=== PATIENT | female | born 1995 | race Caucasian/White ===

== ENCOUNTER → 2018-12-24 | Outpatient (CLI) | payer BC ==
--- NOTE | 2018-12-24 08:33 | US ---
EXAMINATION TYPE: US abdomen complete DATE OF EXAM: 12/24/2018 COMPARISON: NONE CLINICAL HISTORY: R14.2 Eructation. Acid reflux, IBS x 3 years EXAM MEASUREMENTS: Liver Length: 16.4 cm Gallbladder Wall: 0.2 cm CBD: 0.4 cm Spleen: 11.0 cm Right Kidney: 12.4 x 5.4 x 4.8 cm Left Kidney: 12.8 x 6.4 x 5.3 Pancreas: Tail obscured by overlying bowel gas Liver: There is increased echogenicity of the hepatic parenchyma with diminished visualization of th e portal triads most commonly relating to hepatic steatosis and limiting evaluation for underlying he patic masses. Gallbladder: No stones seen Evidence for sonographic Varghese's sign: No CBD: wnl Spleen: wnl Right Kidney: No hydronephrosis or masses seen Left Kidney: No hydronephrosis or masses seen Upper IVC: wnl Abd Aorta: wnl The liver is hyperechoic throughout. The intrahepatic portion of the IVC and proximal abdominal aort a are within normal limits. There is no evidence of cholelithiasis. Common bile duct is unremarkabl e. The visualized portions of the pancreas are homogenous. The spleen is unremarkable. Kidneys are symmetric and free of hydronephrosis. No renal lesions are seen. IMPRESSION: Exam is slightly limited secondary to overlying bowel gas. 1. Findings most commonly related to hepatic steatosis. Correlate with liver function tests. 2. No sonographic evidence of cholelithiasis nor acute cholecystitis.
== END | disposition home or self-care (01) ==
LOC: RADUSWWP 07:35
PROVIDERS: ATTEND Family Medicine
DX: R14.2 Eructation (principal)
CPT/HCPCS: 76700

== ENCOUNTER 2019-02-11 08:45 | Day surgery (SDC) | payer BC ==
[2019-02-10 12:36] VITALS: BMI 46.5
--- NOTE | 2019-02-11 07:35 | P.GSHP ---
History of Present Illness H&P Date: 02/11/19 CHIEF COMPLAINT: GERD HISTORY OF PRESENT ILLNESS: The patient is a 23-year-old female who presents reports gastroesophageal reflux disease. Upper endoscopy was offered for further evaluation and management. PAST MEDICAL HISTORY: Please see list. PAST SURGICAL HISTORY: Please see list. MEDICATIONS: Please see list. ALLERGIES: Please see list. SOCIAL HISTORY: No illicit drug use FAMILY HISTORY: No reports of Crohn disease or ulcerative colitis. REVIEW OF ORGAN SYSTEMS: CONSTITUTIONAL: No reports of fevers or chills. GI: Denies any blood in stools or constipation. PHYSICAL EXAM: VITAL SIGNS: Stable GENERAL: Well-developed and pleasant in no acute distress. HEENT: No scleral icterus. Extraocular movements grossly intact. Moist buccal mucosa. NECK: Supple without lymphadenopathy. CHEST: Unlabored respirations. Equal bilateral excursions. CARDIOVASCULAR: Regular rate and rhythm. Distal 2+ pulses. ABDOMEN: Soft, nondistended. MUSCULOSKELETAL: No clubbing, cyanosis, or edema. ASSESSMENT: 1. Gastroesophageal reflux disease PLAN: 1. Recommend proceeding with an upper endoscopy Past Medical History Past Medical History: GERD/Reflux Additional Past Medical History / Comment(s): frequent acid reflux for months, wakes up @night w/heartburn, tries to sleep propped, scheduled for gallbladder surg. next month, hx. fatty liver History of Any Multi-Drug Resistant Organisms: None Reported Past Surgical History: Tonsillectomy Additional Past Surgical History / Comment(s): cyst removed from leg, wisdom teeth Past Anesthesia/Blood Transfusion Reactions: No Reported Reaction Smoking Status: Former smoker - Past Family History Mother Family Medical History: No Reported History Medications and Allergies Home Medications Medication Instructions Recorded Confirmed Type Ibuprofen [Advil] 200 mg PO Q6HR PRN 02/10/19 02/10/19 History Metoclopramide HCl [Reglan] 10 mg PO TID 02/10/19 02/10/19 History Ranitidine HCl [Zantac] 75 mg PO BID 02/10/19 02/10/19 History Allergies Allergy/AdvReac Type Severity Reaction Status Date / Time No Known Allergies Allergy Verified 02/10/19 12:12
[~2019-02-11 08:45] MED LIST: LACTATED RINGERS 1,000 ML IV SCH; LIDOCAINE 1% 20 ML VIAL (10MG/ML) FOR IV START INTRADERMA PRN; MIDAZOLAM 2 MG/2 ML VIAL IV PRN
[2019-02-11 09:32] VITALS: TEMP 99.2
[2019-02-11] MEDS ORDERED: LIDOCAINE 1% INJ 10MG/ML (20 ML MDV) ONE (10:27)
[2019-02-11] MEDS ORDERED: GLYCOPYRROLATE 0.2 MG/ML 2 ML VIAL ONE (10:27)
[2019-02-11] MEDS ORDERED: PROPOFOL 10 MG/ML 20 ML VIAL IV ONE (10:27)
--- NOTE | 2019-02-11 10:57 | P.PCN ---
Date of Procedure: 02/11/19 Description of Procedure: PREOPERATIVE DIAGNOSIS: Gastroesophageal reflux disease. Morbid obesity. POSTOPERATIVE DIAGNOSIS: Morbid obesity. Gastritis. Gastroesophageal reflux disease Erosive esophagitis Duodenitis OPERATION: Esophagogastroduodenoscopy with biopsies along antrum. SURGEON: Amy Ballard MD ANESTHESIA: MAC. INDICATIONS: The patient is a 23-year-old female who presents with a history of reflux disease. Benefits and risks of the procedure were described. Informed consent was obtained. DESCRIPTION: The patient was brought into the endoscopy suite and laid in the left lateral decubitus position. An Olympus gastroscope was passed along the posterior oropharynx down to the distal esophagus where the squamocolumnar junction was encountered at 36 cm from the incisors. The stomach was entered and no bile reflux was found. Additional findings are listed below. Biopsies with cold forceps were obtained of the antrum. The first through third portion of the duodenum was examined and remarkable for duodenitis. Retroflexion of the scope confirmed Hill grade 2 lower esophageal valve. The squamocolumnar junction demonstrated LA grade B erosive esophagitis. The stomach was desufflated. The patient tolerated the procedure well. FINDINGS: Squamocolumnar junction 36 cm from the incisors. Diaphragmatic hiatus at 36 cm. Hill grade 2 lower esophageal valve. LA grade B erosive esophagitis. Active duodenitis. Chronic gastritis with recent bleed RECOMMENDATIONS: Upper endoscopy as needed. Plan - Discharge Summary Discharge Rx Participant: No New Discharge Prescriptions: No Action Ranitidine HCl [Zantac] 75 mg PO BID Ibuprofen [Advil] 200 mg PO Q6HR PRN PRN Reason: Pain Metoclopramide HCl [Reglan] 10 mg PO TID Discharge Medication List Ibuprofen [Advil] 200 mg PO Q6HR PRN 02/10/19 [History] Metoclopramide HCl [Reglan] 10 mg PO TID 02/10/19 [History] Ranitidine HCl [Zantac] 75 mg PO BID 02/10/19 [History] Follow up Appointment(s)/Referral(s): Amy Ballard MD [STAFF PHYSICIAN] - As Needed Patient Instructions/Handouts: Gastroesophageal Reflux Disease (DC) Discharge Disposition: HOME SELF-CARE
[2019-02-11 11:13] VITALS: BP 131/89; PULSE 87; RESP 16
== END 2019-02-11 11:29 | disposition home or self-care (01) ==
LOC: ORWHC2ENDO 08:45
PROVIDERS: ATTEND Surgery Plastic and Reconstructive Surgery
DX: K21.0 Gastro-esophageal reflux disease with esophagitis (principal); K29.50 Unspecified chronic gastritis without bleeding; K29.80 Duodenitis without bleeding; E66.01 Morbid (severe) obesity due to excess calories; Z68.42 Body mass index [BMI] 45.0-49.9, adult; Z87.891 Personal history of nicotine dependence; Z79.1 Long term (current) use of non-steroidal anti-inflammatories (NSAID); Z79.899 Other long term (current) drug therapy
CPT/HCPCS: 43239; 88305; J2001; J2704

== ENCOUNTER → 2019-03-05 | Outpatient (CLI) | payer BC | END | disposition home or self-care (01) | LOC: LABPAT 09:58 | PROVIDERS: ATTEND Surgery Plastic and Reconstructive Surgery | DX: Z53.9 Procedure and treatment not carried out, unspecified reason (principal) ==

== ENCOUNTER 2019-03-06 07:26 | Day surgery (SDC) | payer BC ==
[2019-03-03 15:00] VITALS: BMI 47.4
--- NOTE | 2019-03-06 06:25 | P.GSHP ---
History of Present Illness H&P Date: 03/06/19 CHIEF COMPLAINT: Cholecystitis HISTORY OF PRESENT ILLNESS: The patient is a 23-year-old female who presents with history of epigastric including right upper quadrant abdominal pain. She underwent diagnostic studies for her gallbladder. Separately her clinical picture was consistent with cholecystitis. Now she presents for surgical intervention. PAST MEDICAL HISTORY: Please see list PAST SURGICAL HISTORY: Please see list MEDICATIONS: Please see list ALLERGIES: Denies. SOCIAL HISTORY: No illicit drug use or recent tobacco use FAMILY HISTORY: Pertinent for gallbladder disease REVIEW OF ORGAN SYSTEMS: CONSTITUTIONAL: No reports of fevers or chills. HEENT: Denies any troubles with the vision or hearing. HEMATOLOGIC: No personal or family history of DVTs or pulmonary emboli. SKIN: No skin cancer. PHYSICAL EXAM: VITAL SIGNS: Afebrile vital signs stable GENERAL: Well-developed pleasant in no acute distress. HEENT: No scleral icterus. Extraocular movements grossly intact. Moist buccal mucosa. NECK: Supple without lymphadenopathy. CHEST: Unlabored respirations. Equal bilateral excursions. CARDIOVASCULAR: Regular rate regular rhythm rhythm. Distal 2+ pulses. ABDOMEN: Soft, nondistended. Tender along the epigastrium and right upper quadrant. MUSCULOSKELETAL: No clubbing, cyanosis, or edema. NEURO: Cranial nerves II to XII within normal limits. No focal or lateralizing signs. PSYCH: Alert and oriented to person, place and time. SKIN: Well-perfused good skin turgor. ASSESSMENT: 1. Epigastric and right upper quadrant abdominal pain 2. Chronic cholecystitis 3. Symptomatic gallstones. PLAN: 1. Will need a robotic cholecystectomy possible open. Benefits and risks were described. 2. Heparin for DVT prophylaxis 5000 units. 3. Antibiotic prophylaxis. Past Medical History Past Medical History: Liver Disease Additional Past Medical History / Comment(s): GALLBLADDER DISEASE. FATTY LIVER History of Any Multi-Drug Resistant Organisms: None Reported Past Surgical History: Tonsillectomy Additional Past Surgical History / Comment(s): CYST REMOVED FROM LEG. EGD. WISDOM TEETH REMOVED UNDER ANESTHESIA Past Anesthesia/Blood Transfusion Reactions: Motion Sickness Smoking Status: Former smoker - Past Family History Mother Family Medical History: No Reported History Medications and Allergies Home Medications Medication Instructions Recorded Confirmed Type Ibuprofen [Advil] 200 mg PO Q6HR PRN 02/10/19 03/03/19 History Metoclopramide HCl [Reglan] 10 mg PO TID 02/10/19 03/03/19 History Ranitidine HCl [Zantac] 75 mg PO BID 02/10/19 03/03/19 History Allergies Allergy/AdvReac Type Severity Reaction Status Date / Time No Known Allergies Allergy Verified 03/03/19 14:49
[~2019-03-06 07:26] MED LIST changes: +ACETAMINOPHEN TAB 500 MG TAB PO STA; +DEXAMETHASONE SOD PHOSPHATE 10 MG/ML 1 ML VIAL IV ONE; +HEPARIN SODIUM,PORCINE 5,000 UNIT/ML 1 ML VIAL SQ ONE; +HYDROmorphone 0.5 MG/0.5 ML SYRINGE IVP PRN; +INDOCYANINE GREEN 25 MG VIAL IV STA; -MIDAZOLAM 2 MG/2 ML VIAL IV PRN; +ONDANSETRON 4 MG/2 ML VIAL IVP ONE; +SCOPOLAMINE 1.5MG/72HR PATCH TRANSDERM ONE; +ceFAZolin 3 GM in SODIUM CHLORIDE 0.9% 100 ML IVPB ONE
[2019-03-06 08:11] LABS: Glucose,Whole Blood 122 mg/dL (75-99)
[2019-03-06 08:20] LABS: Basophils # (A) 0.1 k/uL (0-0.2); Basophils % (A) 1 %; Eosinophils # (A) 0.2 k/uL (0-0.7); Eosinophils % (A) 2 %; HCT 39.2 % (34.0-46.0); HGB 13.5 gm/dL (11.4-16.0); Lymphocytes # (A) 2.5 k/uL (1.0-4.8); Lymphocytes % (A) 29 %; MCH 28.7 pg (25.0-35.0); MCHC 34.3 g/dL (31.0-37.0); MCV 83.6 fL (80.0-100.0); Mean Platelet Volume 6.4; Monocytes # (A) 0.4 k/uL (0-1.0); Monocytes % (A) 4 %; Neutrophils # (A) 5.5 k/uL (1.3-7.7); Neutrophils % (A) 63 %; Platelet Count 285 k/uL (150-450); RBC 4.69 m/uL (3.80-5.40); RDW 15.6 % (11.5-15.5); WBC 8.7 k/uL (3.8-10.6)
[2019-03-06] MEDS ORDERED: fentaNYL (PF) 50 MCG/ML 2 ML AMP IV ONE (08:20)
[2019-03-06] MEDS ORDERED: MIDAZOLAM (PF) 2 MG/2 ML VIAL IV ONE (08:20)
--- NOTE | 2019-03-06 09:00 | P.ANPRN ---
Procedure Note - Anesthesia - Nerve Block Performed Bilateral Transversus Abdominis Single Time Out Performed: Yes Date of Procedure: 03/06/19 Procedure Start Time: Procedure Stop Time: Location of Patient Procedure: PreOp Indication: Acute Post-Operative Pain, Analgesia, Requested by Surgeon Sedation Type: Sedate with meaningful contact maintained Preparation: Sterile Prep Position: Supine Catheter: Indwelling Needle Gauge: 21 Ultrasound used to visualize needle placement: Yes Ultrasound used to observe medication spread: Yes Injectate: Other (see comment) (0.5% bupivacaine 15cc each side) Blood Aspirated: No Pain Paresthesia on Injection Noted: No Resistance on Injection: Normal Image Stored and Saved: Yes Events: Uneventful and Well Tolerated
[2019-03-06] MEDS ORDERED: fentaNYL (PF) 50 MCG/ML 2 ML AMP ONE (09:25)
[2019-03-06] MEDS ORDERED: BUPIVACAINE (PF) 0.5% 30 ML VIAL ONE (09:25)
[2019-03-06] MEDS ORDERED: PROPOFOL 10 MG/ML 20 ML VIAL IV ONE (09:25)
[2019-03-06] MEDS ORDERED: GLYCOPYRROLATE 0.2 MG/ML 2 ML VIAL ONE (09:25)
[2019-03-06] MEDS ORDERED: NEOSTIGMINE 1 MG/ML 10 ML VIAL ONE (09:25)
[2019-03-06] MEDS ORDERED: ROCURONIUM BROMIDE 10 MG/ML 10 ML VIAL IV ONE (09:25)
[2019-03-06] MEDS ORDERED: INDOCYANINE GREEN 25 MG VIAL IV ONE (09:25)
[2019-03-06] MEDS ORDERED: LIDOCAINE 1% INJ 10MG/ML (20 ML MDV) ONE (09:25)
[2019-03-06] MEDS ORDERED: MIDAZOLAM 2 MG/2 ML VIAL ONE (09:25)
[2019-03-06] MEDS ORDERED: NALOXONE 0.4 MG/ML 1 ML VIAL ONE (09:25)
[2019-03-06] MEDS ORDERED: LIDOCAINE 1%-EPI 1:100,000 20 ML VIAL SQ ONE (09:51)
--- NOTE | 2019-03-06 10:52 | P.OP ---
Date of Procedure: 03/06/19 Description of Procedure: SURGEON: AMY BALLARD MD PREOPERATIVE DIAGNOSES: 1. Right upper quadrant abdominal pain 2. Chronic cholecystitis 3. Morbid obesity due to excess calories, BMI 47.4 4. Gastroesophageal reflux disease 5. Anxiety disorder 6. Depressive disorder POSTOPERATIVE DIAGNOSES: 1. Right upper quadrant abdominal pain 2. Chronic cholecystitis 3. Morbid obesity due to excess calories, BMI 47.4 4. Gastroesophageal reflux disease 5. Anxiety disorder 6. Depressive disorder 7. Fatty liver disease 8. Hepatomegaly OPERATION: Robotic-assisted da Laura Xi laparoscopic cholecystectomy, multiport with FIREFLY ESTIMATED BLOOD LOSS: 5 mL. SPECIMENS REMOVED: Gallbladder. COMPLICATIONS: None. OPERATIVE FINDINGS: 1. Chronic cholecystitis 2. Moderate to severe hepatomegaly from fatty liver disease adding complexity to the case 3. Console time 38 minutes INDICATIONS: The patient is a 23-year-old female who presents with cholelcystitis. Surgical intervention with a laparoscopic cholecystectomy was described at length including injury to the biliary tree, bleeding, infection, need for further surgery. Informed consent was obtained. Robotic assisted laparoscopic approach was described. Benefits and risks of the procedure including but not limited to bleeding, infection, injury to the biliary tree was described. Informed consent was obtained. DESCRIPTION OF PROCEDURE: Patient was brought to the operating room, placed in supine position. After general induction, the abdomen had been prepped and draped in standard sterile fashion. The robotic da Laura XI system was primed. After a timeout protocol was performed, the patient had been prepped and draped in standard sterile fashion. The patient was injected with indocyanine green. A 5 mm 0 degrees laparoscopic trocar entry was performed along the left upper quadrant. The abdomen insufflated to 15 mmHg pressure which was tolerated well. Diagnostic laparoscopy demonstrated no injury to bowel viscera or mesentery. The liver surface was unremarkable. Next, two 8 mm robotic ports were placed along the right upper abdomen. The camera 8-mm port was maintained along the epigastrium. Another 8 mm port was placed along the left upper abdominal wall after exchanging the 5 mm port. Please note that the ports were placed at least 10 to 15 cm away from the target anatomy of the gallbladder. The robot was docked along the left lateral abdomen. The patient was repositioned in reverse Trendelenburg position. Using a grasper for arm 3, a grasper for arm 4, including hook cautery for arm 1, the robotic system was docked and primed as described. Instruments were interchanged by the assistant professor including hook cautery, Bovie cautery and clip appliers. I had sat at the console. Severe hepatomegaly is identified and complexity to the case including exposure of the gallbladder. A dome down technique was approached. The gallbladder was dissected from the hepatic fossa to the gallbladder infundibulum. The gallbladder fundus was retracted over the dome of the liver. Initial attention was brought to the infundibulum which was gently retracted in the inferior lateral approach. Using a grasper, the cystic duct including the cystic artery was carefully skeletonized. FIREFLY was used to identify the cystic artery and cystic structures. A critical view of safety was obtained. Large PLASTIC clips were used throughout the entire case. Using a clip physical scientist 2 clips were placed proximally, and 1 clip was placed between the infundibulum and cystic duct and divided using cautery. Next, the cystic artery was similarly clipped and cauterized. Electro-Bovie cautery was used to remove the gallbladder from the hepatic fossa. Hemostasis was checked and found to be adequate. The robot was undocked. I re-scrubbed into the case. Using a 10 mm Endo Catch bag via the left upper quadrant incision, the specimen was removed from the abdominal cavity. All pneumoperitoneum instruments were evacuated from the abdominal cavity. The incisions were reapproximated using 4-0 Monocryl in an interrupted subcuticular fashion. Fascial defects were less than 8 mm in size. Please note along the trocar sites, local anesthetic was placed as a field block prior to insertion of all instruments. Liquid glue was applied to the skin. At the end of the procedure needle, sponge, and instrument count had been verified correct by the surgical instrument mechanic. The patient was transferred to postanesthesia care unit in stable condition. Intraoperative films were shared with the patient's family who were very pleased with the level of care. Plan - Discharge Summary Discharge Rx Participant: No New Discharge Prescriptions: New Ibuprofen [Motrin] 600 mg PO Q8HR PRN #30 tab PRN Reason: Pain Acetaminophen Tab [Tylenol Tab] 500 mg PO Q6H PRN #30 tablet PRN Reason: Pain No Action Ranitidine HCl [Zantac] 75 mg PO BID Ibuprofen [Advil] 200 mg PO Q6HR PRN PRN Reason: Pain Metoclopramide HCl [Reglan] 10 mg PO TID Discharge Medication List Ibuprofen [Advil] 200 mg PO Q6HR PRN 02/10/19 [History] Metoclopramide HCl [Reglan] 10 mg PO TID 02/10/19 [History] Ranitidine HCl [Zantac] 75 mg PO BID 02/10/19 [History] Acetaminophen Tab [Tylenol Tab] 500 mg PO Q6H PRN #30 tablet 03/06/19 [Rx] Ibuprofen [Motrin] 600 mg PO Q8HR PRN #30 tab 03/06/19 [Rx] Follow up Appointment(s)/Referral(s): Amy Ballard MD [STAFF PHYSICIAN] - 03/10/19 Patient Instructions/Handouts: *Surgery [facility] - Scopalamine Patch Instructions, Low Fat Diet (DC), Laparoscopic Cholecystectomy (DC) Activity/Diet/Wound Care/Special Instructions: No lifting over 10 pounds for 10 days until March 16. May shower. No bathtub soaks until 03/16/[address] in 48 hours. Low-fat diet for the next 48 hours. Use ice for incisions. Discharge Disposition: HOME SELF-CARE
[2019-03-06] MEDS ORDERED: LACTATED RINGERS 1,000 ML IV ONE (11:03)
[2019-03-06 11:16] VITALS: TEMP 96.8
[2019-03-06] MEDS ORDERED: HYDROmorphone 1 MG/ML 1 ML SYRINGE IVP ONE ×2 (11:40→11:43)
[2019-03-06 11:58] VITALS: RESP 16
[2019-03-06 12:53] VITALS: BP 121/72; PULSE 83
== END 2019-03-06 13:40 | disposition home or self-care (01) ==
LOC: OR 07:26
PROVIDERS: ATTEND Surgery Plastic and Reconstructive Surgery
DX: K81.1 Chronic cholecystitis (principal); E66.01 Morbid (severe) obesity due to excess calories; Z68.42 Body mass index [BMI] 45.0-49.9, adult; F32.9 Major depressive disorder, single episode, unspecified; F41.9 Anxiety disorder, unspecified; K21.9 Gastro-esophageal reflux disease without esophagitis; K76.0 Fatty (change of) liver, not elsewhere classified; Z87.891 Personal history of nicotine dependence; Z79.899 Other long term (current) drug therapy
CPT/HCPCS: 81025; 64488; 88304; 85025; 47562; J2250 ×2; J1644; J1100; J2310; J2710; J0690; J2405; J2001; J3010; J1170; J2704

== ENCOUNTER 2019-04-21 13:17 | Emergency (ER) | payer BC ==
[2019-04-21 13:49] VITALS: TEMP 98.2
[2019-04-21] MEDS ORDERED: KETOROLAC 30 MG/ML 1 ML VIAL IVP STA (15:08)
[2019-04-21] MEDS ORDERED: PANTOPRAZOLE 40 MG/10 ML VIAL IVP STA (15:08)
[2019-04-21] MEDS ORDERED: MORPHINE SULFATE 4 MG/ML SYRINGE IVP STA (15:08)
[2019-04-21] MEDS ORDERED: SODIUM CHLORIDE 0.9% 1,000 ML IV ONE (15:08)
[2019-04-21 15:15] LABS: Basophils # (A) 0.2 k/uL (0-0.2); Basophils % (A) 1 %; Eosinophils # (A) 0.3 k/uL (0-0.7); Eosinophils % (A) 3 %; HCT 40.2 % (34.0-46.0); HGB 13.4 gm/dL (11.4-16.0); Lymphocytes # (A) 3.5 k/uL (1.0-4.8); Lymphocytes % (A) 31 %; MCH 27.8 pg (25.0-35.0); MCHC 33.3 g/dL (31.0-37.0); MCV 83.6 fL (80.0-100.0); Mean Platelet Volume 6.1; Monocytes # (A) 0.5 k/uL (0-1.0); Monocytes % (A) 5 %; Neutrophils # (A) 6.6 k/uL (1.3-7.7); Neutrophils % (A) 59 %; Platelet Count 327 k/uL (150-450); RBC 4.81 m/uL (3.80-5.40); RDW 13.1 % (11.5-15.5); WBC 11.3 k/uL (3.8-10.6)
[2019-04-21 15:16] LABS: ALT 67 U/L (9-52); AST 43 U/L (14-36); African American GFR (CKD) >90 (>60 ml/min/1.73 sqM); Albumin 4.4 g/dL (3.5-5.0); Alkaline Phosphatase 117 U/L (38-126); Amylase 56 U/L (30-110); Anion Gap 11 mmol/L; Blood Urea Nitrogen 13 mg/dL (7-17); Calcium 9.6 mg/dL (8.4-10.2); Carbon Dioxide 22 mmol/L (22-30); Chloride 107 mmol/L (98-107); Glucose 80 mg/dL (74-99); Sodium 140 mmol/L (137-145); Total Bilirubin 0.4 mg/dL (0.2-1.3)
--- NOTE | 2019-04-21 15:33 | ED ---
Abdominal Pain HPI - General Chief Complaint: Abdominal Pain Stated Complaint: Abdominal pain Time Seen by Provider: 04/21/19 14:16 Source: patient, RN notes reviewed, old records reviewed Mode of arrival: ambulatory Limitations: no limitations - History of Present Illness Initial Comments: Patient is a 23-year-old female presents return today with left upper quadrant left lower abdominal and right upper quadrant abdominal pain for the past 3 days. She points to some nausea and discomfort. She states that she's been having vomiting. Patient had history of cholecystectomy approximately one month ago. She denies any specific fevers or chills that she is aware of. Denies any changes in urination or bowel habits. - Related Data Home Medications Medication Instructions Recorded Confirmed Omeprazole [PriLOSEC] 20 mg PO DAILY PRN 04/21/19 04/21/19 Previous Rx's Medication Instructions Recorded Ibuprofen [Motrin] 600 mg PO Q8HR PRN #30 tab 03/06/19 Allergies Allergy/AdvReac Type Severity Reaction Status Date / Time No Known Allergies Allergy Verified 04/21/19 18:36 Review of Systems ROS Statement: Those systems with pertinent positive or pertinent negative responses have been documented in the HPI. ROS Other: All systems not noted in ROS Statement are negative. Past Medical History Past Medical History: GERD/Reflux Additional Past Medical History / Comment(s): frequent acid reflux for months, wakes up @night w/heartburn, tries to sleep propped, scheduled for gallbladder surg. next month, hx. fatty liver History of Any Multi-Drug Resistant Organisms: None Reported Past Surgical History: Cholecystectomy, Tonsillectomy Additional Past Surgical History / Comment(s): cyst removed from leg, wisdom teeth Past Anesthesia/Blood Transfusion Reactions: No Reported Reaction Past Psychological History: Anxiety, Depression, PTSD Smoking Status: Former smoker Past Alcohol Use History: None Reported Past Drug Use History: Marijuana - Past Family History Mother Family Medical History: No Reported History General Exam - General Exam Comments Initial Comments: 23-year-old female. Alert and oriented 3. No distress. General: Well appearing, well nourished, in no distress. Oriented x 3, normal mood and affect . Ambulating without difficulty. Skin: Good turgor, no rash, unusual bruising or prominent lesions Hair: Normal texture and distribution. HEENT: Head: Normocephalic, atraumatic, no visible or palpable masses, depressions, or scaring. Eyes: Visual acuity intact, conjunctiva clear, sclera non-icteric, EOM intact, PERRL. Ears: EACs clear, TMs translucent & cone of light visualized. hearing intact. Nose: No external lesions, mucosa non-inflamed, septum and turbinates normal Mouth: Mucous membranes moist, no mucosal lesions. Teeth/Gums: No obvious caries or periodontal disease. No gingival inflammation or significant resorption. Pharynx: Mucosa non-inflamed, no tonsillar hypertrophy or exudate Neck: Supple, without lesions, bruits, or adenopathy, thyroid non-enlarged and non-tender Heart: No cardiomegaly or thrills; regular rate and rhythm, no murmur or gallop Lungs: Clear to auscultation and percussion Abdomen: Bowel sounds normal, left upper quadrant tenderness. Back: Spine normal without deformity or tenderness, no CVA tenderness Extremities: No amputations or deformities, cyanosis, edema or varicosities, peripheral pulses intact Musculoskeletal: Normal gait and station. No misalignment, asymmetry, crepitation, defects, tenderness, masses, effusions, decreased range of motion, instability, atrophy or abnormal strength or tone in the head, neck, spine, ribs, pelvis or extremities. Neurologic: CN 2-12 normal. Sensation to pain, touch, and proprioception normal. DTRs normal in upper and lower extremities. No pathologic reflexes. Psychiatric: Oriented X3, intact recent and remote memory, judgment and insight, normal mood and affect. Limitations: no limitations Course Vital Signs 04/21/19 04/21/19 04/21/19 13:47 16:55 18:09 Temperature 98.2 F 98.2 F Pulse Rate 101 H 82 81 Respiratory 22 18 18 Rate Blood Pressure 157/99 122/85 130/83 O2 Sat by Pulse 99 96 98 Oximetry Medical Decision Making - Medical Decision Making 23-year-old female presents today for evaluation for left upper quadrant abdominal pain. Is given IV fluids, Protonix oral morphine. On reevaluation she is continued to complain of pain. Blood work was reviewed and unremarkable. Discussed with persistent pain history of cholecystectomy we can do further imaging today such as a CAT scan. She is agreeable to proceed with this. CT was shows no acute changes. Evidence is a fatty liver disease was noted. Patient advised that she may have gastritis or peptic ulcer disease. I discussed that she needs to follow-up with primary care doctor and will comply the Patient on antacids at this time. Discussed return parameters and close PCP follow-up. - Lab Data Result diagrams: 04/21/19 15:00 04/21/19 15:00 Lab Results 04/21/19 04/21/19 04/21/19 Range/Units 15:00 15:00 15:33 WBC 11.3 H (3.8-10.6) k/uL RBC 4.81 (3.80-5.40) m/uL Hgb 13.4 (11.4-16.0) gm/dL Hct 40.2 (34.0-46.0) % MCV 83.6 (80.0-100.0) fL MCH 27.8 (25.0-35.0) pg MCHC 33.3 (31.0-37.0) g/dL RDW 13.1 (11.5-15.5) % Plt Count 327 (150-450) k/uL Neutrophils % 59 % Lymphocytes % 31 % Monocytes % 5 % Eosinophils % 3 % Basophils % 1 % Neutrophils # 6.6 (1.3-7.7) k/uL Lymphocytes # 3.5 (1.0-4.8) k/uL Monocytes # 0.5 (0-1.0) k/uL Eosinophils # 0.3 (0-0.7) k/uL Basophils # 0.2 (0-0.2) k/uL Sodium 140 (137-145) mmol/L Potassium 4.0 (3.5-5.1) mmol/L Chloride 107 (98-107) mmol/L Carbon Dioxide 22 (22-30) mmol/L Anion Gap 11 mmol/L BUN 13 (7-17) mg/dL Creatinine 0.74 (0.52-1.04) mg/dL Est GFR (CKD-EPI)AfAm >90 (>60 ml/min/1.73 sqM) Est GFR (CKD-EPI)NonAf >90 (>60 ml/min/1.73 sqM) Glucose 80 (74-99) mg/dL Calcium 9.6 (8.4-10.2) mg/dL Total Bilirubin 0.4 (0.2-1.3) mg/dL AST 43 H (14-36) U/L ALT 67 H (9-52) U/L Alkaline Phosphatase 117 (38-126) U/L Total Protein 8.0 (6.3-8.2) g/dL Albumin 4.4 (3.5-5.0) g/dL Amylase 56 (30-110) U/L Lipase 151 (23-300) U/L Urine Color Urine Appearance (Clear) Urine pH (5.0-8.0) Ur Specific [place] (1.001-1.035) Urine Protein (Negative) Urine Glucose (UA) (Negative) Urine Ketones (Negative) Urine Blood (Negative) Urine Nitrite (Negative) Urine Bilirubin (Negative) Urine Urobilinogen (<2.0) mg/dL Ur Leukocyte Esterase (Negative) Urine RBC (0-5) /hpf Urine WBC (0-5) /hpf Ur Squamous Epith Cells (0-4) /hpf Amorphous Sediment (None) /hpf Urine Mucus (None) /hpf Urine HCG, Qual Not Detected (Not Detectd) 04/21/19 Range/Units 15:33 WBC (3.8-10.6) k/uL RBC (3.80-5.40) m/uL Hgb (11.4-16.0) gm/dL Hct (34.0-46.0) % MCV (80.0-100.0) fL MCH (25.0-35.0) pg MCHC (31.0-37.0) g/dL RDW (11.5-15.5) % Plt Count (150-450) k/uL Neutrophils % % Lymphocytes % % Monocytes % % Eosinophils % % Basophils % % Neutrophils # (1.3-7.7) k/uL Lymphocytes # (1.0-4.8) k/uL Monocytes # (0-1.0) k/uL Eosinophils # (0-0.7) k/uL Basophils # (0-0.2) k/uL Sodium (137-145) mmol/L Potassium (3.5-5.1) mmol/L Chloride (98-107) mmol/L Carbon Dioxide (22-30) mmol/L Anion Gap mmol/L BUN (7-17) mg/dL Creatinine (0.52-1.04) mg/dL Est GFR (CKD-EPI)AfAm (>60 ml/min/1.73 sqM) Est GFR (CKD-EPI)NonAf (>60 ml/min/1.73 sqM) Glucose (74-99) mg/dL Calcium (8.4-10.2) mg/dL Total Bilirubin (0.2-1.3) mg/dL AST (14-36) U/L ALT (9-52) U/L Alkaline Phosphatase (38-126) U/L Total Protein (6.3-8.2) g/dL Albumin (3.5-5.0) g/dL Amylase (30-110) U/L Lipase (23-300) U/L Urine Color Yellow Urine Appearance Clear (Clear) Urine pH 5.5 (5.0-8.0) Ur Specific [place] 1.021 (1.001-1.035) Urine Protein Negative (Negative) Urine Glucose (UA) Negative (Negative) Urine Ketones Negative (Negative) Urine Blood Trace H (Negative) Urine Nitrite Negative (Negative) Urine Bilirubin Negative (Negative) Urine Urobilinogen <2.0 (<2.0) mg/dL Ur Leukocyte Esterase Negative (Negative) Urine RBC 1 (0-5) /hpf Urine WBC 2 (0-5) /hpf Ur Squamous Epith Cells 8 H (0-4) /hpf Amorphous Sediment Rare H (None) /hpf Urine Mucus Rare H (None) /hpf Urine HCG, Qual (Not Detectd) - Radiology Data Radiology results: report reviewed Negative CT of the abdomen and pelvis. Minimal infiltration of the liver. Normal appendix. KUB shows No acute abdomen. Read by Dr. Saeed. Disposition Clinical Impression: Upper abdominal pain Disposition: HOME SELF-CARE Condition: Good Instructions (If sedation given, give patient instructions): Abdominal Pain (ED) Additional Instructions: Please use medication as discussed. Please follow up with family doctor if symptoms have not improved over the next two days. Please return to the emergency room if your symptoms increase or worsen or for any other concerns. Is patient prescribed a controlled substance at d/c from ED?: No Referrals: Kurt Claros DO [Primary Care Provider] - 1-2 days Time of Disposition: 17:55
[2019-04-21 16:08] LABS: Amorphous Sediment,Urine Rare /hpf; Appearance,Urine Clear (Clear); Bilirubin,Urine Negative (Negative); Blood,Urine Trace (Negative); Color,Urine Yellow; Glucose,Urine (UA) Negative (Negative); Ketones,Urine Negative (Negative); Leukocyte Esterase,Urine Negative (Negative); Mucus,Urine Rare /hpf; Nitrite,Urine Negative (Negative); PH, Urine 5.5 (5.0-8.0); Protein,Urine Negative (Negative); RBC,Urine 1 /hpf (0-5); Specific Gravity,Urine 1.021 (1.001-1.035); Squamous Epithelial Cell,Urine 8 /hpf (0-4); Urobilinogen,Urine <2.0 mg/dL (<2.0)
--- NOTE | 2019-04-21 16:39 | XR ---
EXAMINATION TYPE: XR KUB DATE OF EXAM: 04/21/2019 COMPARISON: NONE HISTORY: Abdominal pain TECHNIQUE: 2 views FINDINGS: 2 views upright were obtained and show no sign of intestinal obstruction or pneumoperitoneu m. Fecal pattern is normal. There is no sign of a mass. Lung bases are clear. There are no pathologic calcifications. IMPRESSION: Nonacute abdomen.
[2019-04-21 16:57] VITALS: RESP 18
--- NOTE | 2019-04-21 17:44 | CT ---
EXAMINATION TYPE: CT abdomen pelvis w con DATE OF EXAM: 04/21/2019 COMPARISON: None HISTORY: abdominal pain, N/V/D 1 month post-op sobeida CT DLP: 2659.4 mGycm Automated exposure control for dose reduction was used. TECHNIQUE: Helical acquisition of images was performed from the lung bases through the pelvis. CONTRAST: Performed without Oral Contrast and with IV Contrast, patient injected with 100 mL of Isovue 300. FINDINGS: Lung bases are clear. There is no pleural effusion. Heart size is normal. There is some fatty replacement of the liver. Spleen is intact. There is no pancreatic mass. Gallblad de appears normal. Stomach is intact. There is no adrenal mass. Kidneys show satisfactory contrast opacification. There is no hydronephrosi s. Ureters are not dilated. Bladder distends smoothly. There is no inguinal hernia. Appendix appears normal. There is no mesenteric edema. There is no ascites or free air. There is no sign of a bowel ob struction. Lumbar spine is intact. I see no bony destructive process. Uterus is anteverted. IMPRESSION: NEGATIVE CT SCAN OF THE ABDOMEN PELVIS. MINIMAL FATTY INFILTRATION OF THE LIVER. NORMAL APPENDIX.
[2019-04-21 18:09] VITALS: BP 130/83; PULSE 81
== END 2019-04-21 18:53 | disposition home or self-care (01) ==
LOC: EC 13:17
DX: K76.0 Fatty (change of) liver, not elsewhere classified (principal); R10.11 Right upper quadrant pain; R10.12 Left upper quadrant pain; K21.9 Gastro-esophageal reflux disease without esophagitis; Z79.899 Other long term (current) drug therapy; Z90.49 Acquired absence of other specified parts of digestive tract; Z87.891 Personal history of nicotine dependence
CPT/HCPCS: 36415; 80053; 82150; 83690; 85025; 81001; 81025; 74018; 74177; 99285; 96374; 96375 ×2; 96361; J2270; J1885; C9113; Q9967

== ENCOUNTER 2020-01-25 12:44 | Emergency (ER) | payer BC ==
[2020-01-25] MEDS ORDERED: diphenhydrAMINE 50 MG CAP PO STA (13:24)
[2020-01-25] MEDS ORDERED: METOCLOPRAMIDE 5 MG/ML 2 ML VIAL IM STA (13:24)
[2020-01-25] MEDS ORDERED: KETOROLAC 30 MG/ML 1 ML VIAL IM STA (13:24)
--- NOTE | 2020-01-25 13:26 | ED ---
Headache HPI - General Mode of arrival: ambulatory Limitations: no limitations <Arie Kelley - Last Filed: 01/25/20 18:45> <Farheen Schafer - Last Filed: 01/28/20 01:58> - General Chief Complaint: Headache Stated Complaint: migraine/vomiting Time Seen by Provider: 01/25/20 13:05 - History of Present Illness Initial Comments: Patient is a 24-year-old female with history of migraines presenting to the emergency department with a chief complaint of headache. Patient reports this was a gradual onset headache on the left side of her head that has been unwell for the past 4 days. Patient reports photosensitivity and about 2 days ago she developed nausea with multiple episodes of nonbilious, nonbloody vomiting. Patient reports she does have history of migraines but her most recent one has been several years ago. Patient denies one-sided weakness or paresthesias. States he took [id number] analgesics with some improvement status. Denies any possibility for . Denies a night sweats or chills. Denies neck stiffness. (Arie Kelley) - Related Data Home Medications Medication Instructions Recorded Confirmed Omeprazole [PriLOSEC] 20 mg PO DAILY PRN 04/21/19 04/21/19 Previous Rx's Medication Instructions Recorded Ibuprofen [Motrin] 600 mg PO Q8HR PRN #30 tab 03/06/19 Ondansetron Odt [Zofran Odt] 4 mg PO Q8HR PRN #14 tab 01/25/20 Allergies Allergy/AdvReac Type Severity Reaction Status Date / Time No Known Allergies Allergy Verified 01/25/20 12:48 Review of Systems ROS Other: All systems not noted in ROS Statement are negative. <Arie Kelley - Last Filed: 01/25/20 18:45> ROS Other: All systems not noted in ROS Statement are negative. <Farheen Schafer - Last Filed: 01/28/20 01:58> ROS Statement: Those systems with pertinent positive or pertinent negative responses have been documented in the HPI. Past Medical History Past Medical History: GERD/Reflux Additional Past Medical History / Comment(s): frequent acid reflux for months, wakes up @night w/heartburn, tries to sleep propped, scheduled for gallbladder surg. next month, hx. fatty liver History of Any Multi-Drug Resistant Organisms: None Reported Past Surgical History: Cholecystectomy, Tonsillectomy Additional Past Surgical History / Comment(s): cyst removed from leg, wisdom teeth Past Anesthesia/Blood Transfusion Reactions: No Reported Reaction Past Psychological History: Anxiety, Depression, PTSD Smoking Status: Vaper Past Alcohol Use History: None Reported Past Drug Use History: Marijuana - Past Family History Mother Family Medical History: No Reported History <Arie Kelley - Last Filed: 01/25/20 18:45> General Exam Limitations: no limitations General appearance: alert, in no apparent distress Head exam: Present: atraumatic, normocephalic, normal inspection Eye exam: Present: normal appearance, PERRL, EOMI Pupils: Present: normal accommodation ENT exam: Present: normal exam, normal oropharynx, mucous membranes moist, TM's normal bilaterally, normal external ear exam Neck exam: Present: normal inspection, full ROM. Absent: tenderness, meningismus, other (Negative Brudzinski) Respiratory exam: Present: normal lung sounds bilaterally. Absent: respiratory distress, wheezes Cardiovascular Exam: Present: regular rate, normal rhythm, normal heart sounds GI/Abdominal exam: Present: soft. Absent: distended, tenderness, guarding Extremities exam: Present: normal inspection, full ROM. Absent: tenderness Back exam: Present: normal inspection, full ROM. Absent: tenderness, CVA tenderness (R), CVA tenderness (L) Neurological exam: Present: alert, oriented X3, CN II-XII intact, normal gait Psychiatric exam: Present: normal affect, normal mood Skin exam: Present: warm, dry, intact, normal color <Arie Kelley - Last Filed: 01/25/20 18:45> Course Vital Signs 01/25/20 01/25/20 12:45 15:35 Temperature 98.7 F 98.2 F Pulse Rate 92 90 Respiratory 20 16 Rate Blood Pressure 155/104 136/90 O2 Sat by Pulse 96 96 Oximetry Medical Decision Making <Arie Kelley - Last Filed: 01/25/20 18:45> <Farheen Schafer - Last Filed: 01/28/20 01:58> - Medical Decision Making Patient is a 24-year-old female with history of migraines presenting to emergenc y Department with chief complaint of migraine. Left-sided headache that was gradual onset and not the worst headache of her life. Reports sensitivity nausea vomiting. Neurological examination is unremarkable. Considering the patient has never received any CT imaging for previous migraine headaches, CT was obtained showing no acute processes. Patient was offered IV rehydration and IV medications, she declined. Patient was given IM Toradol and Reglan. 50 mg of oral Benadryl. On reevaluation patient reports improvement in symptoms. States the photosensitivity and nausea have resolved. Patient advised to follow with primary care physician. She will be discharged with Zofran. Return parameters were thoroughly discussed the patient was up standing agreeable. Case discussed physician. (Arie Kelley) I was available for consultation in the emergency department. The history and physical exam were done by the midlevel provider. [facility] I reviewed the case with the midlevel provider and based on their presentation of the patient, I agree with the assessment, medical decision making and plan of care as documented. Chart was dictated using [employer] dictation software. Attempts were made to correct any dictation errors however some typographical errors may persist. Patient was seen during a national state of emergency due to the Covid-19 pandemic. (Farheen Schafer) Disposition Is patient prescribed a controlled substance at d/c from ED?: No Time of Disposition: 15:04 <Arie Kelley - Last Filed: 01/25/20 18:45> <Farheen Schafer - Last Filed: 01/28/20 01:58> Clinical Impression: Headache, Migraine Disposition: HOME SELF-CARE Condition: Stable Instructions (If sedation given, give patient instructions): Acute Headache (ED) Additional Instructions: Tapers, medication as directed. Follow with the primary care physician. Return to emergency department if symptoms worsen. Prescriptions: Ondansetron Odt [Zofran Odt] 4 mg PO Q8HR PRN #14 tab PRN Reason: Nausea Referrals: Kurt lCaros DO [Primary Care Provider] - 1-2 days
--- NOTE | 2020-01-25 14:21 | CT ---
EXAMINATION TYPE: CT brain wo con DATE OF EXAM: 01/25/2020 COMPARISON: None. HISTORY: FORTUNE x4 days CT DLP: 1125.4 mGycm. Automated Exposure Control for Dose Reduction was Utilized. TECHNIQUE: CT scan of the head is performed without contrast. FINDINGS: There is no acute intracranial hemorrhage, mass effect, or midline shift identified. The ventricles and sulci are within normal limits in size. [place]-white matter differentiation is [place]. The globes are intact and the visualized sinuses are clear. IMPRESSION: No acute intracranial hemorrhage, mass effect, or midline shift is seen.
[2020-01-25 15:36] VITALS: BP 136/90; PULSE 90; RESP 16; TEMP 98.2
== END 2020-01-25 15:35 | disposition home or self-care (01) ==
LOC: EC 12:44
DX: G43.909 Migraine, unspecified, not intractable, without status migrainosus (principal); K21.9 Gastro-esophageal reflux disease without esophagitis; Z79.899 Other long term (current) drug therapy; F17.290 Nicotine dependence, other tobacco product, uncomplicated; Z90.49 Acquired absence of other specified parts of digestive tract
CPT/HCPCS: 70450; 96372 ×2; 99283; J2765; J1885

== ENCOUNTER 2020-07-05 09:50 | Inpatient (IN) | payer BC, MEDICAID, OTHER ==
--- NOTE | 2020-07-05 10:11 | ED ---
General Adult HPI - General Chief complaint: Psychiatric Symptoms Stated complaint: mental health Time Seen by Provider: 07/05/20 10:02 Source: patient Mode of arrival: ambulatory Limitations: no limitations - History of Present Illness Initial comments: Dictation was produced using [employer] dictation software. please excuse any grammatical, word or spelling errors. This patient was cared for during a federal and state declared state of emergency secondary to Covid 19 Chief Complaint: 25-year-old male presents with thoughts of suicide History of Present Illness: 25-year-old female she is here because she is depressed and has thoughts of suicide. Patient is very stressed out because of stresses in her life. Patient states she stressed out particularly about her job, paying bills and her child. Patient wants to overdose on Motrin. Patient has a history of psychiatric disease. She has no medical complaints at this time. The ROS documented in this emergency department record has been reviewed and confirmed by me. Those systems with pertinent positive or negative responses have been documented in the HPI. All other systems are other negative and/or noncontributory. PHYSICAL EXAM: General Impression: Alert and oriented x3, not in acute distress HEENT: Normocephalic atraumatic, extra-ocular movements intact, pupils equal and reactive to light bilaterally, mucous membranes moist. Cardiovascular: Heart regular rate and rhythm Chest: Able to complete full sentences, no retractions, no tachypnea Abdomen: abdomen soft, non-tender, non-distended, no organomegaly Musculoskeletal: Pulses present and equal in all extremities, no peripheral edema Motor: no focal deficits noted Neurological: CN II-XII grossly intact, no focal motor or sensory deficits noted Skin: Intact with no visualized rashes Psych: Depressed, tearful ED course: 25-year-old female presents with thoughts of suicide. vital signs upon arrival are within acceptable limits. Patient medically cleared for EPS evaluation. Patient was advised by EPS. Patient be admitted to inpatient psychiatry. - Related Data Home Medications Medication Instructions Recorded Confirmed Omeprazole [PriLOSEC] 20 mg PO DAILY 04/21/19 07/05/20 Allergies Allergy/AdvReac Type Severity Reaction Status Date / Time No Known Allergies Allergy Verified 07/05/20 10:52 Review of Systems ROS Statement: Those systems with pertinent positive or pertinent negative responses have been documented in the HPI. ROS Other: All systems not noted in ROS Statement are negative. Past Medical History Past Medical History: GERD/Reflux Additional Past Medical History / Comment(s): frequent acid reflux for months, wakes up @night w/heartburn, tries to sleep propped, scheduled for gallbladder surg. next month, hx. fatty liver History of Any Multi-Drug Resistant Organisms: None Reported Past Surgical History: Cholecystectomy, Tonsillectomy Additional Past Surgical History / Comment(s): cyst removed from leg, wisdom teeth Past Anesthesia/Blood Transfusion Reactions: No Reported Reaction Past Psychological History: Anxiety, Depression, PTSD Smoking Status: Former smoker Past Alcohol Use History: None Reported Past Drug Use History: Marijuana - Past Family History Mother Family Medical History: No Reported History General Exam Limitations: no limitations Course Vital Signs 07/05/20 09:56 Temperature 98.6 F Pulse Rate 101 H Respiratory 18 Rate Blood Pressure 137/96 O2 Sat by Pulse 96 Oximetry Medical Decision Making - Lab Data Lab Results 07/05/20 07/05/20 Range/Units 11:13 11:13 Urine HCG, Qual Not Detected (Not Detectd) Urine Opiates Screen Not Detected (NotDetected) Ur Oxycodone Screen Not Detected (NotDetected) Urine Methadone Screen Not Detected (NotDetected) Ur Propoxyphene Screen Not Detected (NotDetected) Ur Barbiturates Screen Not Detected (NotDetected) U Tricyclic Antidepress Not Detected (NotDetected) Ur Phencyclidine Scrn Not Detected (NotDetected) Ur Amphetamines Screen Not Detected (NotDetected) U Methamphetamines Scrn Not Detected (NotDetected) U Benzodiazepines Scrn Not Detected (NotDetected) Urine Cocaine Screen Not Detected (NotDetected) U Marijuana (THC) Screen Detected H (NotDetected) Disposition Clinical Impression: Suicidal ideation Disposition: ADMITTED IP TO THIS HOSP Condition: Fair Referrals: None,Stated [Primary Care Provider] - 1-2 days Decision Time: 13:12
[2020-07-05 12:10] LABS: Amphetamine Screen,Urine Not Detected (NotDetected); Barbiturate Screen,Urine Not Detected (NotDetected); Benzodiazepines Screen,Urine Not Detected (NotDetected); Cocaine Screen,Urine Not Detected (NotDetected); Methadone Screen, Urine Not Detected (NotDetected); Opiate Screen,Urine Not Detected (NotDetected); Oxycodone Screen, Urine Not Detected (NotDetected); Phencyclidine Screen,Urine Not Detected (NotDetected); Tricyclic Antidepressant,Urine Not Detected (NotDetected); Urn Cannabinoid Scrn Detected (NotDetected)
[2020-07-05] MEDS ORDERED: ACETAMINOPHEN TAB 325 MG TAB PO PRN (14:18)
[2020-07-05] MEDS ORDERED: MAG HYDROX/AL HYDROX/SIMETH 30 ML CUP PO PRN (14:18)
[2020-07-05] MEDS ORDERED: MAGNESIUM HYDROXIDE 2,400 MG/10 ML CUP PO PRN (14:18)
[2020-07-05] MEDS ORDERED: LORazepam 2 MG/ML INJ IM PRN (14:20)
[2020-07-05] MEDS ORDERED: HALOPERIDOL LACTATE 5 MG/ML 1 ML VIAL IM PRN (14:20)
[2020-07-05] MEDS: LORazepam 1 MG TAB PO PRN ×2 (17:32→22:05)
[2020-07-05] MEDS ORDERED: CALCIUM CARBONATE 500 MG CHEWABLE PO PRN (22:56)
--- NOTE | 2020-07-05 22:57 | P.CONS ---
History of Present Illness - Reason for Consult Consult date: 07/05/20 - History of Present Illness I saw the patient alongside U RN Drake. I was never alone with the patient. Patient is a 25-year-old female with a PMH of gastritis who presented to the emergency room with complaints of depression and suicidal ideation. Patient was admitted to the mental health unit where she was seen and evaluated. The patient reports feeling better since her admission. She reported some abdominal discomfort, which she attributes to her GERD since she has not been taking her Prilosec for the past few days. She denied additional complaints. She denied chest discomfort, shortness of fever, chills, nausea, vomiting, abdominal pain, or diarrhea. Review of Systems Pertinent positives and negatives as discussed in HPI, a complete review of systems was performed and all other systems are negative. Past Medical History Past Medical History: GERD/Reflux Additional Past Medical History / Comment(s): frequent acid reflux for months, wakes up @night w/heartburn, tries to sleep propped, scheduled for gallbladder surg. next month, hx. fatty liver History of Any Multi-Drug Resistant Organisms: None Reported Past Surgical History: Cholecystectomy, Tonsillectomy Additional Past Surgical History / Comment(s): cyst removed from leg, wisdom teeth Past Anesthesia/Blood Transfusion Reactions: No Reported Reaction Smoking Status: Never smoker - Past Family History Mother Family Medical History: No Reported History Medications and Allergies Home Medications Medication Instructions Recorded Confirmed Type Omeprazole [PriLOSEC] 20 mg PO DAILY 04/21/19 07/05/20 History Allergies Allergy/AdvReac Type Severity Reaction Status Date / Time No Known Allergies Allergy Verified 07/05/20 16:26 Physical Exam Vitals: Vital Signs Temp Pulse Pulse Resp BP BP Pulse Ox 07/05/20 18:14 97.4 F L 07/05/20 15:05 98.4 F 74 14 129/87 07/05/20 09:56 98.6 F 101 H 18 137/96 96 Intake and Output 07/05/20 07/05/20 07/05/20 06:59 14:59 22:59 Other: Weight 111.13 kg 111.3 kg General: non toxic, no distress, appears at stated age, morbidly obese Derm: no unusual rashes/lesions no unusual ecchymoses, warm, dry Head: atraumatic, normocephalic, symmetric Eyes: EOMI, no lid lag, anicteric sclera, pupils equal round reactive to light ENT: Nose and ears atraumatic, no thrush, no pharyngeal erythema Neck: No thyromegaly, no cervical lymphadenopathy, trachea midline, supple Mouth: no lip lesion, mucus membranes moist Cardiovascular: S1S2 reg, no murmur, positive posterior tibial pulse bilateral, no edema, capillary refill less than 2 seconds Lungs: CTA bilateral, no rhonchi, no rales , no accessory muscle use Abdominal: soft, nontender to palpation, no guarding, no appreciable organomegaly, normal bowel sounds Ext: no gross muscle atrophy, muscle strength 5 out of 5 in all 4 extremities grossly, no contractures, Neuro: CN II-XI grossly intact, light touch intact all 4 extremities, finger to nose within normal limits, Psych: Alert, oriented, appropriate affect Results Labs: Abnormal Lab Results - Last 24 Hours (Table) 07/05/20 Range/Units 11:13 U Marijuana (THC) Screen Detected H (NotDetected) Assessment and Plan Plan: GERD/gastritis -Patient reports she has been taking Prilosec for several years. Advised patie nt on the dangers of long-term PPI use. -Patient agreeable to a trial of Tums Marijuana abuse -Advised on importance of cessation Depression with suicidal ideation -As per psychiatry Thank you for allowing us to participate in the care of this patient. We will follow peripherally. Do not hesitate to contact us with questions. Someone can be reached from the [facility] hospitalist group at all hours of the day at [phone].
[2020-07-06] MEDS ORDERED: PANTOPRAZOLE 40 MG TABLET PO SCH (07:30)
[2020-07-06] MEDS: LORazepam 1 MG TAB PO PRN (08:21)
[2020-07-06] MEDS ORDERED: ONDANSETRON ODT 4 MG TAB PO PRN (09:16)
[2020-07-06] MEDS: ESCITALOPRAM 5 MG TAB PO SCH (09:50)
--- NOTE | 2020-07-06 11:03 | P.HP ---
Psychiatric H&P - . H&P Date: 07/06/20 History & Physical: IDENTIFYING DATA: Natalya is a 25-year-old female admitted to the psychiatric unit voluntarily with complaints of depression and anxiety. HISTORY OF PRESENT ILLNESS: The information obtained from the patient appeared reliable in that she was able to provide a coherent and organized history. She presented to the ED with complaints of depression and anxiety. According to the EPS note, she presented with suicidal ideation; "I wanted to hurt myself." The EPS nurse documented that she had been experiencing intermittent suicidal ideation for about a year and has worsened for the past couple weeks. She reported a plan to overdose on ibuprofen. During our interview, she denied that she was having suicidal ideation and denied that she had a plan to overdose on ibuprofen. She alleged that the she and the EPS nurse misunderstood each other. She thought that the nurse asked her if she ever had suicidal ideation or had ever thought about suicide. She thought that she explained to the nurse that in the past she had thought about overdosing on ibuprofen but denied that she currently has a plan. Her primary complaint was anxiety. She feels overwhelmed by her multiple responsibilities. She stated that she is , has a 3-year-old child, was going to [employer] full-time and started a full-time job. She described a history of anxiety as well as panic attacks. She described classic symptoms of panic attack with episodes of increasing anxiety associated with paresthesias, shortness of breath, lightheadedness, tremulousness and sweating. The panic attacks occur intermittently but since she started the job at [employer] recurrent several times during the day. She complained that she was unable to get an appointment with an outpatient mental health clinic when she called [facility] they recommended that she come to our emergency room. She describes a long history of anxiety beginning in adolescence. The intensity of anxiety fluctuates. As result of anxiety she avoids several actions or would only participate if she were have trusted batch and furnace operator. For example, she will not go to the grocery store alone. She avoids driving whenever possible. She does not like walking alone in public. She will not eat in public and complained that she has difficulty eating on the unit. She avoids large crowds or large social gatherings. She has dropped her classes at [employer] but wants to continue working full-time. 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 She had difficulty concentrating because of the large Ambien background noise, the seventh of the multiple forklifts and a number of people. She described feelings of depression but did not persistent hopelessness or worthlessness. She feels helpless and controlling her anxiety. She did not describe clear and convincing obsessions or compulsions. She has lost 60 pounds over the last year following gallbladder surgery by regimen of strict dieting. She denied that she induces vomiting to control her weight. She denied auditory, visual or olfactory hallucinations, ideas reference, thought insertion, thought broadcasting or thought control. She smokes marijuana but denied the use of other drugs to get high, help her sleep or change her mood. She denied use of alcohol. Her UDS was positive for marijuana and a breath alcohol level was 0. PAST PSYCHIATRIC HISTORY: She had one psychiatric hospitalization in [place] when she was 17 years old for treatment of depression and suicidal ideation. She developed increasing suicidal ideation with Zoloft and talked about trying to hang herself while she was taking the medication. She continued with individual therapy and felt that she benefited from the coping strategy she developed. PAST MEDICAL HISTORY: Medical consult appreciated ALLERGIES: NO KNOWN DRUG ALLERGIES SUBSTANCE USE HISTORY: She denied history of substance use problems. FAMILY PSYCHIATRIC/SUBSTANCE USE HISTORY: Her mother has a history of alcohol use disorder and depression, the maternal grandmother had schizophrenia LEGAL HISTORY: She denied a history of legal problems SOCIAL HISTORY: She is born and raised in an intact family in [place]. She rates her from high school. for 2 years and moved to [place] with her to be closer to his family. He works for a food delivery service. She recently started a job with [employer]. She denied any history of abuse MENTAL STATUS EXAM: He presented as a moderately obese 25-year-old female who was pleasant on approach. She made eye contact and attended to the interview. She had no distinguishing features or prominent physical abnormalities. She had a blunted but bright facial expression. She was alert and oriented to person, place and time. She showed no abnormality of psychomotor activity. Her speech was spontaneous with normal rate, rhythm and volume. Affect was anxious but appropriate. She denies suicidal ideation and wishes. She denied homicidal ideation. She denied feeling hopeless, helpless or worthless. She ruminated about her anxiety and her panic attacks. She did not express ideas reference, paranoid ideation or delusions. Her thinking was abstract and associations were coherent, logical and goal directed. She denied hallucinations and did not appear to responding to internal stimuli. Global impression of intellect is average. She is aware of her illness and need for treatment. STRENGTHS: Good physical health, supportive family, no significant substance use issues, strong interest in mental health treatment WEAKNESSES: Chronic anxiety IMPRESSION: She is a 25-year-old female presented to psychiatric unit overtly for suicidal ideation and plan. However, her primary complaint is anxiety which has worsened since she began working full-time. She described classic panic attacks and subsequent avoidance of multiple activities. There is no significant substance use problems. She would benefit from treatment with antidepressant and individual therapy. PRINCIPLE DIAGNOSIS: Panic disorder with agoraphobia, rule out social anxiety, rule out major depressive disorder RECOMMENDATION: Admitted to psychiatric unit. Safety precautions. home support worker completed initial psychosocial assessment coordinate discharge and aftercare. Begin escitalopram 5 mg daily and titrated according to clinical response and tolerance. Encourage participation in therapeutic groups and activities. Evaluate clinical status response to treatment on a daily basis. Allergies Allergy/AdvReac Type Severity Reaction Status Date / Time No Known Allergies Allergy Verified 07/05/20 16:26 Vital Signs Temp 96.8 F L 07/06/20 08:20 Pulse 110 H 07/06/20 08:20 Resp 20 07/06/20 08:20 BP 125/91 07/06/20 08:20 Pulse Ox 97 07/06/20 08:20 Intake & Output 07/05/20 07/06/20 07/06/20 18:59 06:59 18:59 Weight 111.3 kg Laboratory Last Values Urine HCG, Qual Not Detected (Not Detectd) 07/05/20 11:13 Urine Opiates Screen Not Detected (NotDetected) 07/05/20 11:13 Ur Oxycodone Screen Not Detected (NotDetected) 07/05/20 11:13 Urine Methadone Screen Not Detected (NotDetected) 07/05/20 11:13 Ur Propoxyphene Screen Not Detected (NotDetected) 07/05/20 11:13 Ur Barbiturates Screen Not Detected (NotDetected) 07/05/20 11:13 U Tricyclic Antidepress Not Detected (NotDetected) 07/05/20 11:13 Ur Phencyclidine Scrn Not Detected (NotDetected) 07/05/20 11:13 Ur Amphetamines Screen Not Detected (NotDetected) 07/05/20 11:13 U Methamphetamines Scrn Not Detected (NotDetected) 07/05/20 11:13 U Benzodiazepines Scrn Not Detected (NotDetected) 07/05/20 11:13 Urine Cocaine Screen Not Detected (NotDetected) 07/05/20 11:13 U Marijuana (THC) Screen Detected (NotDetected) H 07/05/20 11:13 Coronavirus (PCR) Not Detected (Not Detectd) 07/05/20 13:07 07/06/20 09:43 07/06/20 10:58
[2020-07-06] MEDS ORDERED: LORazepam 0.5 MG TAB PO PRN (12:22)
[2020-07-07 06:28] VITALS: BP 130/73; PULSE 78; RESP 18; TEMP 98
[2020-07-07] MEDS: ESCITALOPRAM 5 MG TAB PO SCH (08:26)
[2020-07-07 10:15] LABS: Basophils # (A) 0.1 k/uL (0-0.2); Basophils % (A) 1 %; Eosinophils # (A) 0.1 k/uL (0-0.7); Eosinophils % (A) 1 %; HCT 44.3 % (34.0-46.0); Lymphocytes # (A) 2.6 k/uL (1.0-4.8); Lymphocytes % (A) 24 %; MCH 29.3 pg (25.0-35.0); MCHC 33.9 g/dL (31.0-37.0); MCV 86.3 fL (80.0-100.0); Mean Platelet Volume 6.9; Monocytes # (A) 0.4 k/uL (0-1.0); Monocytes % (A) 4 %; Neutrophils # (A) 7.3 k/uL (1.3-7.7); Neutrophils % (A) 70 %; Platelet Count 321 k/uL (150-450); RBC 5.14 m/uL (3.80-5.40); RDW 13.1 % (11.5-15.5); WBC 10.5 k/uL (3.8-10.6)
--- NOTE | 2020-07-07 10:59 | P.DS ---
Providers Date of admission: 07/05/20 14:14 Attending physician: Adarsh Arceo MD Consults: 07/05/20 14:18 Consult Physician Routine Consulting Provider: Shlomo Physician Consult Reason/Comments: H&P and medical Do you want consulting provider notified?: Yes Primary care physician: Stated None - Discharge Diagnosis(es) (1) Suicidal ideation Current Visit: Yes Status: Resolved Priority: Low (2) Panic disorder with agoraphobia Current Visit: Yes Status: Acute Priority: High (3) Cannabis use disorder, mild, abuse Current Visit: Yes Status: Chronic Priority: Low Hospital Course: HISTORY: Natalya is a 25-year-old female admitted to the psychiatric unit voluntarily with complaints of depression and anxiety. The information obtained from the patient appeared reliable in that she was able to provide a coherent and organized history. She presented to the ED with complai nts of depression and anxiety. According to the EPS note, she presented with suicidal ideation; "I wanted to hurt myself." The EPS nurse documented that she had been experiencing intermittent suicidal ideation for about a year and has worsened for the past couple weeks. She reported a plan to overdose on ibuprofen. During our interview, she denied that she was having suicidal ideation and de nied that she had a plan to overdose on ibuprofen. She alleged that the she and the EPS nurse misunderstood each other. She thought that the nurse asked her if she ever had suicidal ideation or had ever thought about suicide. She thought that she explained to the nurse that in the past she had thought about overdosing on ibuprofen but denied that she currently has a plan. Her primary complaint was anxiety. She feels overwhelmed by her multiple responsibilities. She stated that she is , has a 3-year-old child, was going to [employer] full-time and started a full-time job. She described a history of anxiety as well as panic attacks. She described classic symptoms of panic attack with episodes of increasing anxiety associated with paresthesias, shortness of breath, lightheadedness, tremulousness and sweating. The panic attacks occur intermittently but since she started the job at [employer] recurrent several times during the day. She complained that she was unable to get an appointment with an outpatient mental health clinic when she called [facility] they recommended that she come to our emergency room. She describes a long history of anxiety beginning in adolescence. The intensity of anxiety fluctuates. As result of anxiety she avoids several actions or would only participate if she were have trusted materials tech. For example, she will not go to the grocery store alone. She avoids driving whenever possible. She does not like walking alone in public. She will not eat in public and complained that she has difficulty eating on the unit. She avoids large crowds or large social gatherings. She has dropped her classes at [employer] but wants to continue working full-time. 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 She had difficulty concentrating because of the large Ambien background noise, the seventh of the multiple forklifts and a number of people. She described feelings of depression but did not persistent hopelessness or worthlessness. She feels helpless and controlling her anxiety. She did not describe clear and convincing obsessions or compulsions. She has lost 60 pounds over the last year following gallbladder surgery by regimen of strict dieting. She denied that she induces vomiting to control her weight. She denied auditory, visual or olfactory hallucinations, ideas reference, thought insertion, thought broadcasting or thought control. She smokes marijuana but denied the use of other drugs to get high, help her sleep or change her mood. She denied use of alcohol. Her UDS was positive for marijuana and a breath alcohol level was 0. HOSPITAL COURSE: We admitted her to the psychiatric unit voluntarily under the care of this teletypewriter operator. Provided a comprehensive biopsychosocial assessment. The biomedical photographer idiagnosed GERD and recommended Tums rather than continue long-term PPI treatment. She agreed to a trial of citalopram for treatment of her anxiety symptoms. She received 2 doses while she was on the inpatient unit reported no adverse effects. She maintained throughout this brief hospitalization that she did not present to the ED with suicidal ideation and denied that she was having a thought of overdosing on Motrin. She participated in therapeutic groups and activities and posed no management problem. She was greatly entrusted to him outpatient mental health services. The social science manager spoke with her who expressed no concerns about her returning home. MENTAL STATUS ON DISCHARGE: He presented as a moderately obese 25-year-old female who was pleasant on approach. She made eye contact and attended to the interview. She had no distinguishing features or prominent physical abnormalities. She had a blunted but bright facial expression. She was alert and oriented to person, place and time. She showed no abnormality of psychomotor activity. Her speech was spontaneous with normal rate, rhythm and volume. Affect was anxious. She denies suicidal ideation and wishes. She denied homicidal ideation. She denied feeling hopeless, helpless or worthless. She ruminated about her anxiety and her panic attacks. She did not express ideas reference, paranoid ideation or delusions. Her thinking was abstract and associations were coherent, logical and goal directed. She denied hallucinations and did not appear to responding to internal stimuli. Global impression of intellect is average. She is aware of her illness and need for treatment. DISPOSITION: She will return to her former address. We will increase Lexapro to 10 mg daily and provide a 30 day supply. She has a intake appointment with Faizan Zhu on 07/13/2020 Patient Condition at Discharge: Stable Plan - Discharge Summary Discharge Rx Participant: Yes New Discharge Prescriptions: New Escitalopram [Lexapro] 10 mg PO DAILY #30 tablet Continue Omeprazole [PriLOSEC] 20 mg PO DAILY Discharge Medication List Omeprazole [PriLOSEC] 20 mg PO DAILY 04/21/19 [History] Escitalopram [Lexapro] 10 mg PO DAILY #30 tablet 07/07/20 [Rx] Follow up Appointment(s)/Referral(s): Audra Gloria [Other] - 07/13/20 9:30 am (Faizan Zhu 07/13/20 at 0930 with Ancelmo Ibarra ) None,Stated [Primary Care Provider] - 1-2 days Discharge Disposition: HOME SELF-CARE
[2020-07-07 11:13] LABS: ALT 75 U/L (4-34); AST 53 U/L (14-36); African American GFR (CKD) >90 (>60 ml/min/1.73 sqM); Albumin 4.7 g/dL (3.5-5.0); Alkaline Phosphatase 86 U/L (38-126); Anion Gap 11 mmol/L; Blood Urea Nitrogen 11 mg/dL (7-17); Calcium 9.8 mg/dL (8.4-10.2); Carbon Dioxide 22 mmol/L (22-30); Chloride 106 mmol/L (98-107); Cholesterol 187 mg/dL (<200); Glucose 121 mg/dL (74-99); HDL Cholesterol 63 mg/dL (40-60); LDL Cholesterol,Calculated 101 mg/dL (0-99); Non-African American GFR(CKD) >90 (>60 ml/min/1.73 sqM); Sodium 139 mmol/L (137-145); Total Bilirubin 1.1 mg/dL (0.2-1.3); Total Protein 8.1 g/dL (6.3-8.2); Triglycerides 115 mg/dL (<150)
[2020-07-07 19:45] LABS: Hemoglobin A1C 4.8 % (4.0-6.0)
== END 2020-07-07 11:50 | disposition home or self-care (01) | DRG 881 ==
LOC: EC 09:50 → 3MHU 14:14
PROVIDERS: ADMIT Psychiatry & Neurology Psychiatry; ATTEND Psychiatry & Neurology Psychiatry
DX: F32.9 Major depressive disorder, single episode, unspecified (principal); F12.10 Cannabis abuse, uncomplicated; F40.01 Agoraphobia with panic disorder; F43.10 Post-traumatic stress disorder, unspecified; K21.9 Gastro-esophageal reflux disease without esophagitis; T39.312A Poisoning by propionic acid derivatives, intentional self-harm, initial encounter; Z81.8 Family history of other mental and behavioral disorders; Z87.891 Personal history of nicotine dependence; Z20.822 Contact with and (suspected) exposure to COVID-19
CPT/HCPCS: 80053; 80061; 80306; 81025; 82075; 83036; 85025; 87635; 99285